=== PATIENT | male | born 1960 | race Caucasian/White ===

== ENCOUNTER 2020-08-18 03:55 | Inpatient (IN) | payer OTHER, SELFPAY ==
[~2020-08-18] VITALS: Ht 175.3 cm; Wt 85.7 kg
[2020-08-18] VITALS (8 sets, daily range): BP systolic 112–138; BP diastolic 72–88
--- NOTE | 2020-08-18 03:55 | NUR ---
PT CHRISTIANNE JIMENEZ, PREBOOK. TAKEN TO CHAIR
--- NOTE | 2020-08-18 03:55 | NUR ---
CHRISTIANNE GAINES 424, FOR PRE-BOOK FOR MEDICAL CLEARANCE. PT. C/O OF RIGHT FOOT PAIN. DENIES N/V/D; SKIN IS PINK/WARM/DRY; AAOX4 WITH GUARDED STEADY GAIT; HR EVEN AND REGULAR; PT DENIES ANY FEVER, CP, SOB, OR COUGH AT THIS TIME; VSS; PATIENT POSITIONED FOR COMFORT; HOB ELEVATED; BEDRAILS UP X2; BED DOWN. ER MD MADE AWARE OF PT STATUS.
--- NOTE | 2020-08-18 03:58 | NUR ---
Dr. Simmons examining patient.
[2020-08-18] MEDS ORDERED: NACL 0.9% 2,500 ML IV ONE (04:00)
[2020-08-18] MEDS ORDERED: PIPERACILLIN/TAZOBACTAM 3.375 GM in DEXTROSE 5% 50 ML IV ONE (04:00)
[2020-08-18] MEDS ORDERED: VANCOMYCIN 1,000 MG in DEXTROSE 5% 250 ML IV ONE (04:00)
--- NOTE | 2020-08-18 04:05 | NUR ---
PT MOVED TO ER BED 12
--- NOTE | 2020-08-18 04:30 | NUR ---
PT TAKEN TO CT
[2020-08-18 04:43] LABS: BASOPHILS % (AUTO) 0.5 % (0.0-2.0); EOSINOPHILS # (AUTO) 0.1 K/uL (0-0.4); EOSINOPHILS % (AUTO) 0.7 % (0.0-4.0); HEMATOCRIT 40.3 % (36-52); HEMOGLOBIN 13.4 g/dL (12.0-18.0); LYMPHOCYTES # (AUTO) 1.1 K/uL (2.0-11.5); LYMPHOCYTES % (AUTO) 11.5 % (20.5-51.1); MEAN CORPUSCULAR HEMOGLOBIN 29 pg (27-31); MEAN CORPUSCULAR HGB CONC 33 g/dL (33-37); MONOCYTES # (AUTO) 0.5 K/uL (0.8-1.0); MONOCYTES % (AUTO) 5.2 % (1.7-9.3); NEUTROPHILS % (AUTO) 82.1 % (42.2-75.2); PLATELET COUNT (AUTO) 348 K/uL (140-450); RED BLOOD CELL COUNT(AUTO) 4.63 MIL/uL (4.20-6.10); RED CELL DISTRIBUTION WIDTH 14.7 % (11.6-13.7); WHITE BLOOD COUNT (AUTO) 9.7 K/uL (4.8-10.8)
[2020-08-18] MEDS ORDERED: PIPERACILLIN/TAZOBACTAM 3.375 GM VIAL IV ONE (04:53)
[2020-08-18] MEDS ORDERED: VANCOMYCIN 1,000 MG VIAL ONE (04:54)
[2020-08-18 04:57] LABS: ALBUMIN 3.2 g/dL (3.4-5.0); ANION GAP 10.9 (8-16); CARBON DIOXIDE 30.1 mmol/L (21-32); CREATININE 1.7 mg/dL (0.6-1.3); TOTAL BILIRUBIN 0.2 mg/dL (0.0-1.0)
[2020-08-18] MEDS ORDERED: MORPHINE SULFATE 4 MG/ML SYR IVP ONE ×2 (05:00→05:45)
--- NOTE | 2020-08-18 05:45 | NUR ---
DELAY IN COLLECTION OF URINE, PT. NOT ABLE TO AT THIS TIME.
--- NOTE | 2020-08-18 06:00 | NUR ---
STEPHANIE SWAB COMPLETED AND TAKEN TO LAB
[2020-08-18] MEDS ORDERED: VANCOMYCIN PER PHARMACY MC PRN (06:05)
[2020-08-18] MEDS ORDERED: LORazepam 2 MG/ML VIAL IVP PRN (06:05)
[2020-08-18] MEDS ORDERED: ONDANSETRON 4 MG/2 ML VIAL IVP PRN (06:05)
[2020-08-18] MEDS ORDERED: ACETAMINOPHEN 325 MG TAB PO PRN (06:05)
[2020-08-18] MEDS ORDERED: LEVO0.124 PO (06:27)
[2020-08-18] MEDS ORDERED: TAMS0.4C96 PO (06:27)
--- NOTE | 2020-08-18 07:22 | NUR ---
REPORT RECEIVED FROM CAROLINA RN, TRANSFER OF CARE AT THIS TIME
[2020-08-18 07:25] LABS: CREATINE KINASE MB 2.2 ng/mL (0-3.6)
--- NOTE | 2020-08-18 07:47 | NUR ---
Patient will be admitted to care of Dr Zuluaga. Admited to [facility]. Will go to room 112B. Belongings list completed. Report to Sarah HOROWITZ.
--- NOTE | 2020-08-18 08:00 | NUR ---
PT STATES HE IS HAVING HARD TIME BREATHING. ERMD MADE AWARE
[2020-08-18] MEDS ORDERED: methylPREDNISolone SS 125 MG/2 ML VIAL IVP ONE (08:05)
[2020-08-18] MEDS ORDERED: diphenhydrAMINE 50 MG/ML VIAL IVP ONE (08:05)
[2020-08-18] MEDS: NACL 0.9% 1,000 ML IV SCH ×2 (08:20→18:37)
[2020-08-18] MEDS ORDERED: TAMSULOSIN 0.4 MG CAP PO ONE (08:30)
--- NOTE | 2020-08-18 08:40 | NUR ---
PT STATES HE IS BREATHING MUCH EASIER AFTER MEDICATIONS GIVEN
[2020-08-18] MEDS ORDERED: LEVOTHYROXINE 0.075 MG TAB PO SCH (09:00)
[2020-08-18] MEDS: LEVOTHYROXINE 0.112 MG TAB PO SCH (09:00)
[2020-08-18 09:29] LABS: BARBITURATE, URINE NEGATIVE ng/ml (NEG <=200); BENZODIAZEPINE, URINE NEGATIVE ng/mL (NEG <=200); CANNABINOID, URINE NEGATIVE ng/mL (NEG <=50); COCAINE, URINE NEGATIVE ng/mL (NEG <=300); OPIATE, URINE POSITIVE ng/mL (NEG <=2000); PHENCYCLIDINE SCREEN,URINE NEGATIVE ng/mL (NEG <=25)
[2020-08-18 09:32] LABS: PROTHROMBIN TIME 9.5 secs (10.8-13.4)
--- NOTE | 2020-08-18 09:36 | NUR ---
Patient will be admitted to care of Dr Zuluaga. Admited to ICU. Will go to room 8. Belongings list completed. Report to Pastor HOROWITZ.
--- NOTE | 2020-08-18 10:00 | NUR ---
PATIENT ARRIVED UNIT VIA GURNEY ACCOMPANIED BY ED NURSE BEST AND EMT KERRY. ASSISTED PATIENT TO TRANSFER TO ICU BED AND POSITIONED PATIENT COMFORTABLY. CHANGED PATIENT INTO YELLOW GOWN, APPLIED ALLERGIC RED WRIST BAND AND YELLOW WRIST BAND FOR FALL RISK. PATIENT IS AWAKE, ALERT, ORIENTED TO NAME, PLACE, DATE, AND TIME. ABLE TO MAKE NEED KNOWN AND FOLLOW COMMANDS. RESPIRATION EVEN, UNLABORED ON ROOM AIR, SETTING SPO2 100%. LUNGS SOUND CLEAR UPON AUSCULTATION. NO SIGNS OF ACUTE DISTRESS NOTED. ATTACHED TO LOAN ASSISTANT, PULSE MONITOR. ADMISSION VITAL SIGNS TAKEN. IV ON R AC 18G, CLEAN AND INTACT, RUNNING NS AT 80 ML/HR. SKIN WARM TO TOUCH, CLEAN, R FOOT/TOE CELLULITIS WOUND NOTED, PATIENT STATED "IT'S HURT BADLY WHEN YOU TOUCH IT OR WHEN I AM MOVING." PATIENT IS ABLE TO USE THE URINAL AT BEDSIDE. ORIENTED PATIENT TO ROOM, DEMONSTRATED ON HOW TO USE THE BED REMOTE TO CHANGE BED POSITION, CALL LIGHT, TV, PATIENT VERBALIZED UNDERSTANDING. SAFETY MEASURES IN PLACE. BED IN LOW POSITION, CALL LIGHT WITHIN REACH, AND BED ALARM ACTIVATED. INSTRUCTED PATIENT TO USE THE CALL LIGHT FOR ANY ASSISTANCE AND PATIENT SAID OK.
--- NOTE | 2020-08-18 10:05 | NUR ---
PT TAKEN TO ICU ROOM 8 AT THIS TIME
--- NOTE | 2020-08-18 10:10 | NUR ---
[facility] NARES SPECIMEN AND WOUND SPECIMEN COLLECTED. PATIENT REFUSED TO PROVIDE EMERGENCY CONTACT INFORMATION NOR PCP INFORMATION. STATED THAT HE CAME TO VISIT HIS SISTER IN THIS AREA. HE ALSO STATED THAT HE IS A VA, THE LAST TIME HE GOT TREATED THERE WAS AROUND MARCH. DENIED OF ANY MEDICAL HISTORY, NOT USING ANY SUBSTANCE. STATED THAT HE USED TO STAY IN A MOTEL.
--- NOTE | 2020-08-18 10:46 | NUR ---
DR MANDUJANO IS ASSESSING PATIENT AT BEDSIDE.
[2020-08-18] MEDS ORDERED: EPINEPHrine 1 MG/ML AMP SUBQ PRN (10:55)
--- NOTE | 2020-08-18 11:05 | NUR ---
PATIENT IS RESTING ON BED COMFORTABLY. DENIED OF ANY DISTRESS. INFORMED PATIENT LUNCH WILL BE SERVE AROUND [phone]. PATIENT SAID OK. NO SIGNS OF ACUTE DISTRESS NOTED. SAFETY MEASURES IN PLACE.
[2020-08-18] MEDS: LEVOFLOXACIN 750 MG/D5W PREMIX 150 ML IV SCH (11:45)
--- NOTE | 2020-08-18 11:50 | NUR ---
LEVOPHED IVPB STARTED PER ORDER, PT EDUCATED ON S/S OF ALLERGIC REACTION, AND INSTRUCTED TO NOTIFY IMMEDIATELY IF ANY REACTION TO NEW MED.
--- NOTE | 2020-08-18 12:40 | NUR ---
PATIENT IS EATING LUNCH ON BED AND WATCHING TV. NO SIGNS OF ACUTE DISTRESS NOTE. SAFETY MEASURES IN PLACE.
--- NOTE | 2020-08-18 12:52 | NUR ---
DR HICKS'S ZABRINA CHESTER IS ASSESSING AND TALKING TO PATIENT AT BEDSIDE.
[2020-08-18] MEDS ORDERED: PIPERACILLIN/TAZOBACTAM 3.375 GM in DEXTROSE 5% 50 ML IV SCH (13:00)
--- NOTE | 2020-08-18 13:45 | NUR ---
DR HICKS IS ASSESSING AND TALKING TO PATIENT AT BEDSIDE. EXPLAINED SUKH RISKS AND BENEFITS TO PATIENT ON DEBRIDEMENT OF HIS R FOOT.
--- NOTE | 2020-08-18 13:50 | NUR ---
CONSENT OBTAINED FROM PATIENT FOR DEBRIDEMENT PROCEDURE THAT SCHEDULE TOMORROW. PATIENT WAS AWARE AND AGREED TO PROCEDURE.
--- NOTE | 2020-08-18 14:45 | NUR ---
PATIENT IS SLEEPING COMFORTABLY ON BED AT THIS TIME. AROUSABLE TO VOICE. RESPIRATION EVEN, UNLABOTED, ON ROOM AIR. NO SIGNS OF ACUTE DISTRESS NOTED. SAFETY MEASURES IN PLACE.
--- NOTE | 2020-08-18 15:37 | NUR ---
US TECHNICAL SERVICES ANALYST IS BY BEDSIDE. NO SIGNS OF DISTRESS NOTED. SAFETY MEASURES IN PLACE.
--- NOTE | 2020-08-18 17:15 | NUR ---
PATIENT IS AWAKE AND WATCHING TV ON BED. NO SIGNS OF ACUTE DISTRESS NOTED. SAFETY MEASURES IN PLACE.
--- NOTE | 2020-08-18 18:10 | NUR ---
PATIENT TRANSFERRED TO TELE UNIT 119B WITHOUT ANY INCIDENT. ALL BELONGINGS TRANSFERRED WITH PATIENT. ORIENTED PATIENT TO HIS ROOM, DEMONSTRATED ON HOW TO USE THE CALL LIGHT, TV, LIGHT, BED REMOTE. SAFETY MEASURES IN PLACE.
--- NOTE | 2020-08-18 18:37 | NUR ---
PATIENT IS EATING DINNER ON BED. DENIED OF ANY DISTRESS. SAFETY MEASURES IN PLACE. NPO SIGN POSTED BY DOOR. EDUCATED PATIENT ON HIS DIET NPO AFTER MIDNIGHT, PATIENT VERBALIZED UNDERSTANDING.
--- NOTE | 2020-08-18 19:16 | NUR ---
ENDORSED PATIENT TO SIGN ERECTOR AND REPAIRER NURSE MINAL FOR CONTINUITY OF CARE. MINAL WAS AWARE THAT NPO AFTER MIDNIGHT, SIGN POSTED BY DOOR. PROCEDURE TENTATIVE SCHEDULE AT [address] HICKS. PATIENT IS IN STABLE CONDITION.
--- NOTE | 2020-08-18 19:29 | NUR ---
RECEIVED REPORT FROM AM SHIFT NURSE. PATIENT ON BED AWAKE, ALERT, NO ACUTE DISTRESS. IVF OF NS INFUSING ON THE RAC. SWELLING ON THE RIGHT FOOT NOTED. DENIES PAIN. WILL CONTINUE TO MONITOR.
[2020-08-18] MEDS: HYDROcodone/APAP 5/325 MG 1 TAB TAB PO PRN (21:06)
[2020-08-18] MEDS: cefTRIAXone 2,000 MG in DEXTROSE 5% 100 ML IV SCH (21:09)
--- NOTE | 2020-08-18 21:16 | NUR ---
SCHEDULED MEDS ADMINISTERED ORDERED BY .
[2020-08-18] MEDS: CLOTRIMAZOLE 1% 30 GM CRM TUBE TP SCH (21:22)
[2020-08-19] VITALS (7 sets, daily range): BP systolic 103–163; BP diastolic 56–90
--- NOTE | 2020-08-19 03:13 | NUR ---
CHECKED PATIENT SLEEPING
--- NOTE | 2020-08-19 03:40 | NUR ---
PATIENT IS AWAKE , ASKED FOR HOT WATER.
[2020-08-19 05:28] LABS: BASOPHILS % (AUTO) 0.3 % (0.0-2.0); HEMATOCRIT 36.3 % (36-52); HEMOGLOBIN 11.9 g/dL (12.0-18.0); LYMPHOCYTES # (AUTO) 1.6 K/uL (2.0-11.5); LYMPHOCYTES % (AUTO) 12.9 % (20.5-51.1); MEAN CORPUSCULAR HEMOGLOBIN 29 pg (27-31); MEAN CORPUSCULAR HGB CONC 33 g/dL (33-37); MEAN CORPUSCULAR VOLUME 86.7 fL (80-94); MONOCYTES # (AUTO) 0.6 K/uL (0.8-1.0); MONOCYTES % (AUTO) 5.2 % (1.7-9.3); NEUTROPHILS # (AUTO) 9.8 K/uL (1.8-7.7); NEUTROPHILS % (AUTO) 81.6 % (42.2-75.2); PLATELET COUNT (AUTO) 328 K/uL (140-450); RED BLOOD CELL COUNT(AUTO) 4.18 MIL/uL (4.20-6.10); RED CELL DISTRIBUTION WIDTH 15.2 % (11.6-13.7)
[2020-08-19 05:41] LABS: ALBUMIN 2.7 g/dL (3.4-5.0); ANION GAP 11.8 (8-16); CARBON DIOXIDE 25.8 mmol/L (21-32); CREATININE 1.5 mg/dL (0.6-1.3); MAGNESIUM 1.9 mg/dL (1.8-2.4); POTASSIUM 4.6 mmol/L (3.5-5.1); TOTAL BILIRUBIN 0.2 mg/dL (0.0-1.0)
[2020-08-19 05:51] LABS: CREATINE KINASE MB 1.8 ng/mL (0-3.6)
[2020-08-19] MEDS: LEVOTHYROXINE 0.112 MG TAB PO SCH (05:58)
[2020-08-19] MEDS: NACL 0.9% 1,000 ML IV SCH ×2 (07:05→19:35)
--- NOTE | 2020-08-19 07:28 | NUR ---
ENDORSED TO AM SHIFT NURSE FOR CONTINUITY OF CARE. PATIENT IS STABLE
--- NOTE | 2020-08-19 07:30 | NUR ---
RECEIVED REPORT FROM SUPPORT SERVICES REP NURSE. PATIENT LYING DOWN IN BED SLEEPING, AROUSABLE BY VOICE. NO DISTRESS NOTED. ON ROOM AIR. AAOX3, CALM, COOPERATIVE. IV SITE INTACT, PATENT, AND INFUSING IVF PER MD ORDERS. REVIEWED PLAN OF CARE WITH PATIENT. PATIENT VERBALIZED UNDERSTANDING. SAFETY MEASURES IN PLACE, CALL LIGHT WITHIN REACH. OR NURSES AT BEDSIDE TO TAKE PATIENT FOR I&D OF RIGHT FOOT CELLULITIS. WILL CONTINUE TO MONITOR WHEN PATIENT RETURNS ON UNIT.
[2020-08-19] MEDS ORDERED: fentaNYL citrate 0.05 MG/ML VIAL ONE (07:39)
[2020-08-19] MEDS ORDERED: BUPIVACAINE-MPF 0.25% 30 ML VIAL INJ ONE (07:43)
[2020-08-19] MEDS ORDERED: DESFLURANE 240 ML BTL INH ONE (07:51)
[2020-08-19] MEDS ORDERED: DEXAMETHASONE 4 MG/ML VIAL ONE (08:01)
[2020-08-19] MEDS ORDERED: ONDANSETRON 4 MG/2 ML VIAL ONE (08:01)
[2020-08-19] MEDS ORDERED: PROPOFOL 200 MG/20 ML VIAL IV ONE (08:02)
[2020-08-19] MEDS ORDERED: HYDROGEN PEROXIDE 3% 240 ML BTL TP ONE (08:19)
[2020-08-19] MEDS ORDERED: NEOMYCIN/POLYMYXIN/BACITRACIN OIN 15 GM TUBE TP SCH (08:35)
--- NOTE | 2020-08-19 08:55 | NUR ---
PENDING WOUND CONSULT, PT. SCHEDULE FOR DEBRIDEMENT.
--- NOTE | 2020-08-19 08:56 | NUR ---
PATIENT HAS BEEN SCREENED AND CATEGORIZED HIGH NUTRITION RISK. PATIENT WILL BE SEEN WITHIN 1-2 DAYS OF ADMISSION. 08/19/[address]
[2020-08-19] MEDS ORDERED: ASPIRIN 81 MG TAB.CHEW PO SCH (09:00)
[2020-08-19] MEDS ORDERED: ONDANSETRON 4 MG/2 ML VIAL IVP PRN (09:10)
[2020-08-19] MEDS ORDERED: HYDROCORTISONE NA SUCC 100 MG/2 ML VIAL ONE (09:26)
[2020-08-19] MEDS: FAMOTIDINE 20 MG/2 ML VIAL IV SCH ×2 (09:41→11:20)
[2020-08-19] MEDS ORDERED: ALBUTEROL 0.083% 2.5 MG/3 ML NEBU INH SCH (10:30)
--- NOTE | 2020-08-19 10:38 | NUR ---
CALLED ICU AND GAVE REPORT TO LOR ROBISON. ANSWERED ALL RN'S QUESTIONS. PATIENT STILL IN OR AND WILL GO DIRECTLY TO ICU AFTER I&D PROCEDURE.
[2020-08-19] MEDS: CLOTRIMAZOLE 1% 30 GM CRM TUBE TP SCH ×3 (11:31→21:00)
[2020-08-19] MEDS: cefTRIAXone 2,000 MG in DEXTROSE 5% 100 ML IV SCH ×2 (11:32→21:00)
--- NOTE | 2020-08-19 11:38 | NUR ---
ADMINISTERED SCHEDULED AM MEDICATION. HELD CLOTRIMAZOLE DUE TO FOOT WRAPPED. WILL CONTINUE TO MONITOR.
--- NOTE | 2020-08-19 12:22 | NUR ---
PAGED DR MANDUJANO OFFICE FOR CALCIUM LEVEL OF 8.1. WILL FOLLOW UP.
[2020-08-19] MEDS: LEVOFLOXACIN 750 MG/D5W PREMIX 150 ML IV SCH (12:42)
--- NOTE | 2020-08-19 12:42 | NUR ---
ROCEPHIN FINISHED, NO SIGNS OF REACTION. ADMINISTERED LEVAQUIN. WILL CONTINUE TO MONITOR.
[2020-08-19 12:43] LABS: BASOPHILS % (AUTO) 0.1 % (0.0-2.0); EOSINOPHILS % (AUTO) 0.1 % (0.0-4.0); HEMATOCRIT 42.1 % (36-52); HEMOGLOBIN 13.7 g/dL (12.0-18.0); LYMPHOCYTES # (AUTO) 0.9 K/uL (2.0-11.5); LYMPHOCYTES % (AUTO) 6.6 % (20.5-51.1); MEAN CORPUSCULAR HEMOGLOBIN 28 pg (27-31); MEAN CORPUSCULAR HGB CONC 33 g/dL (33-37); MEAN CORPUSCULAR VOLUME 87.1 fL (80-94); MONOCYTES # (AUTO) 0.3 K/uL (0.8-1.0); MONOCYTES % (AUTO) 2.6 % (1.7-9.3); NEUTROPHILS # (AUTO) 11.9 K/uL (1.8-7.7); NEUTROPHILS % (AUTO) 90.6 % (42.2-75.2); PLATELET COUNT (AUTO) 332 K/uL (140-450); RED BLOOD CELL COUNT(AUTO) 4.83 MIL/uL (4.20-6.10); WHITE BLOOD COUNT (AUTO) 13.1 K/uL (4.8-10.8)
--- NOTE | 2020-08-19 12:58 | NUR ---
DR BARRIOS CALLED BACK FROM DR MANDUJANO OFFICE. PER DR BARRIOS, OBTAIN LABS FOR VITAMIN D AND IONIZED CALCIUM FOR CALCIUM LEVEL OF 8.1. HE WILL BE IN LATER TO ASSESS RESULTS AND PLAN OF CARE.
--- NOTE | 2020-08-19 13:15 | NUR ---
DR BARRIOS AT BEDSIDE ROUNDING ON PATIENT. PER MD, AWAIT LAB RESULTS TOMORROW TO REASSESS CALCIUM LEVELS. NO NEW ORDERS AT THIS TIME.
--- NOTE | 2020-08-19 13:44 | NUR ---
CHECKED ON PATIENT. NO SIGNS OF DISTRESS OR PAIN. WILL CONTINUE TO MONITOR.
--- NOTE | 2020-08-19 15:19 | NUR ---
08/19/20 RD INITIAL ASSESSMENT COMPLETED PLEASE REFER TO NUTRITION ASSESSMENT UNDER CARE ACTIVITY FOR ESTIMATED NUTRITIONAL NEEDS. 1. IF/WHEN PT IS MEDICALLY CLEAR CONSIDER ADV TO REGULAR DIET 2. RECOMMEND CLAYTON AND ENSURE BID FOR WOUND HEALING 3. RD TO FOLLOW-UP 2-3 DAYS, HIGH-RISK SAAD ESCOBAR, RD
[2020-08-19] MEDS: HYDROcodone/APAP 5/325 MG 1 TAB TAB PO PRN ×2 (15:40→20:37)
--- NOTE | 2020-08-19 17:34 | NUR ---
CHECKED ON PATIENT. NO SIGNS OF DISTRESS OR PAIN. WILL CONTINUE TO MONITOR.
[2020-08-19] MEDS: MORPHINE SULFATE 2 MG/ML SYR IVP PRN (17:42)
--- NOTE | 2020-08-19 19:18 | NUR ---
ENDORSED TO AVELINA RN FOR CONTINUITY OF CARE.
--- NOTE | 2020-08-19 19:30 | NUR ---
RECEIVED PT LYING IN BED, AWAKE, A/O X4. DENIES PAIN AT THIS TIME. ON RA, NO SOB NOTED. +S1, S2 UPON AUSCULTATION. SR ON MONITOR. ABD SOFT, NON-DISTENDED, NON-TENDER. CONTINUES ON REG DIET, ABLE TO EAT INDEPENDENTLY. PERIPHERAL 18G TO RT AC WITH NS INFUSING AT 80 CC/MIN. USES URINAL INDEPENDENTLY. CAP REFILL <3 SEC. SCANT NON-PITTING EDEMA NOTED TO BI UPPER EXTREMITIES. WOUND TO RT FOOT WRAPPED WITH SUHAS BANDAGE AT THIS TIME D/T S/P SURGICAL DEBRIDEMENT WITH I&D TODAY. SAFETY PRECAUTIONS IN PLACE WITH BED LOW AND LOCKED AND CALL LIGHT IN EASY REACH. WILL CONT TO MONITOR FOR CHANGES.
--- NOTE | 2020-08-19 20:37 | NUR ---
NORCO ADMINISTERED AT THIS TIME FOR C/O PAIN @ 5/10 ON ADULT SCALE.
[2020-08-19] MEDS ORDERED: cefTRIAXone 2,000 MG VIAL ONE (20:56)
[2020-08-20] VITALS (7 sets, daily range): BP systolic 93–141; BP diastolic 62–94
--- NOTE | 2020-08-20 | NUR ---
PT SLEEPING IN BED WITH VISIBLE RISE AND FALL OF CX NOTED. NO DISTRESS OBSERVED. WILL CONT TO MONITOR.
[2020-08-20] MEDS: MORPHINE SULFATE 2 MG/ML SYR IVP PRN ×2 (04:50→16:08)
--- NOTE | 2020-08-20 04:50 | NUR ---
MORPHINE ADMINISTERED AT THIS TIME FOR C/O PAIN @ 6/20 ON ADULT SCALE. SEE PAIN ASSESSMENT FOR DETAILS.
--- NOTE | 2020-08-20 06:00 | NUR ---
TRANSFERRED PT TO [facility] ROOM 116. REPORT GIVEN TO LOR PRESTON. IV LINES PATENT, VSS. SAFETY PRECAUTIONS IN PLACE. ALL MEDICATIONS AND BELONGINGS SENT WITH PT.
--- NOTE | 2020-08-20 06:05 | NUR ---
RECEIVED PATIENT FROM ICU VIA BED. PATIENT A/A/OX4,C/O PAIN ON HIS RT FOOT AND REQUESTING FOR PAIN MEDICATIONS. PATIENT VSS, AFEBRILE, SATING 96% ON RA. SR ON MANAGER STRATEGIC MARKETING, HR-71. IVF INFUSING ORDERED. ORIENTED THE PT TO THE ROOM SETTING AND USE OF CALL LIGHT SYSTEM. FALL PRECAUTION IMPLEMENTED. INSTRUCTED TO CALL FOR ASSISTANCE AT ALL TIMES. PT VERBALIZED UNDERSTANDING WITH THE POC. WILL CONTINUE MONITORING AND POC.
[2020-08-20] MEDS: HYDROcodone/APAP 5/325 MG 1 TAB TAB PO PRN ×4 (06:18→21:39)
[2020-08-20] MEDS: LEVOTHYROXINE 0.112 MG TAB PO SCH (06:18)
--- NOTE | 2020-08-20 06:24 | NUR ---
PATIENT REQUESTING TO GET AN ORDER TO RESUME HIS FLOMAX. PAGED DR BAKER AND MADE AWARE OF THE PATIENT REQUEST. AWAITING FOR MD TO CALL BACK.
--- NOTE | 2020-08-20 06:51 | NUR ---
PATIENT STABLE. NOT IN ANY DISTRESS AND NO COMPLAIN AT THIS TIME. ALL NEEDS ATTENDED. CALL LIGHT WITHIN REACH. WILL ENDORSE THE PATIENT TO THE ONCOMING RN FOR CONTINUITY OF CARE.
--- NOTE | 2020-08-20 07:20 | NUR ---
RECEIVED REPORT FROM CLAM GRADER RN FOR CONTINUITY OF CARE. AOX4. SR ON MONITOR. ON RA. REGULAR DIET. ABLE TO SIT IN CHAIR. USES URINAL AND AMBULATES TO BATHROOM WITH ASSIST. IV CLEAN, DRY, AND INTACT ON RAC 18G. SKIN INTACT. BED IN LOCKED POSITION, BED IN PLACE, HEAD OF BED AT 30 DEGREES. CALL LIGHT WITHIN REACH. WILL CONTINUE TO MONITOR.
--- NOTE | 2020-08-20 07:34 | NUR ---
ENDORSED THE PATIENT TO DAY RN FOR CONTINUITY OF CARE. PATIENT STABLE. SIGNING OFF.
[2020-08-20 08:27] LABS: BASOPHILS % (AUTO) 0.4 % (0.0-2.0); EOSINOPHILS # (AUTO) 0.1 K/uL (0-0.4); EOSINOPHILS % (AUTO) 0.7 % (0.0-4.0); HEMATOCRIT 34.6 % (36-52); HEMOGLOBIN 11.5 g/dL (12.0-18.0); LYMPHOCYTES # (AUTO) 2.8 K/uL (2.0-11.5); LYMPHOCYTES % (AUTO) 25.9 % (20.5-51.1); MEAN CORPUSCULAR HEMOGLOBIN 29 pg (27-31); MEAN CORPUSCULAR HGB CONC 33 g/dL (33-37); MONOCYTES # (AUTO) 0.5 K/uL (0.8-1.0); MONOCYTES % (AUTO) 4.3 % (1.7-9.3); NEUTROPHILS # (AUTO) 7.3 K/uL (1.8-7.7); NEUTROPHILS % (AUTO) 68.7 % (42.2-75.2); PLATELET COUNT (AUTO) 301 K/uL (140-450); RED BLOOD CELL COUNT(AUTO) 4.02 MIL/uL (4.20-6.10); WHITE BLOOD COUNT (AUTO) 10.6 K/uL (4.8-10.8)
[2020-08-20 08:31] LABS: CREATININE 1.5 mg/dL (0.6-1.3)
[2020-08-20] MEDS: CLOTRIMAZOLE 1% 30 GM CRM TUBE TP SCH ×2 (09:24→21:37)
[2020-08-20] MEDS: NACL 0.9% 1,000 ML IV SCH ×2 (09:24→21:28)
--- NOTE | 2020-08-20 09:30 | NUR ---
ADMINISTERED SCHEDULED AM MEDICATIONS. ORAL CARE, HYGIENE CARE, AND CHG BATH PROVIDED. WILL CONTINUE TO MONITOR.
[2020-08-20] MEDS: cefTRIAXone 2,000 MG in DEXTROSE 5% 100 ML IV SCH ×2 (09:40→21:23)
[2020-08-20] MEDS: TAMSULOSIN 0.4 MG CAP PO SCH (10:49)
[2020-08-20] MEDS: LEVOFLOXACIN 750 MG/D5W PREMIX 150 ML IV SCH (11:21)
--- NOTE | 2020-08-20 11:45 | NUR ---
PATIENT PULLED OUT IV. NEW IV PLACED LEFT HAND 22 G. RESTARTED IVF AND ANTIBIOTICS. WILL CONTINUE TO MONITOR.
--- NOTE | 2020-08-20 13:46 | NUR ---
CHECKED ON PATIENT. NO SIGN OF PAIN OR DISTRESS. WILL CONTINUE TO MONITOR.
--- NOTE | 2020-08-20 14:10 | NUR ---
DR. SHAIKH STRANGE. UPDATED ON PATIENT STATUS AND CONDITION. AWARE PATIENT IS TRANSFERRING BY WITH MINIMAL ASSIST AND IS NOT HAVING REACTION TO NEW IV ANTIBIOTICS. SAID OKAY FOR DC PENDING ON DR. HICKS AND DR. MONTIEL ORDERS. WILL CONTINUE TO MONITOR.
--- NOTE | 2020-08-20 19:23 | NUR ---
RECEIVED REPORT FROM AM NURSE. PATIENT AWAKE IN BED, NO SOB NOTED. DENIES PAIN. CALL LIGHT WITHIN REACH. WILL CONTINUE TO MONITOR.
--- NOTE | 2020-08-20 19:23 | NUR ---
ENDORSED CARE TO MINAL HOROWITZ FOR CONTINUITY OF CARE.
--- NOTE | 2020-08-20 19:35 | NUR ---
LATE ENTRY- ZOSYN IVPB DISCONTINUED AT 3034
--- NOTE | 2020-08-20 21:02 | NUR ---
ADMINISTERED SCHEDULED MEDS ORDERED. NEEDS ATTENDED.
[2020-08-21] VITALS: BP 120/66
[2020-08-21 04:00] VITALS: BP 127/86
[2020-08-21] MEDS: LEVOTHYROXINE 0.112 MG TAB PO SCH (05:34)
[2020-08-21] MEDS: HYDROcodone/APAP 5/325 MG 1 TAB TAB PO PRN ×2 (07:01→11:30)
--- NOTE | 2020-08-21 07:10 | NUR ---
ENDORSED TO AM NURSE FOR CONTINUITY OF CARE. PATIENT IS STABLE.
--- NOTE | 2020-08-21 07:25 | NUR ---
RECEIVED REPORT FROM STORE WORKER NURSE. PATIENT LYING DOWN IN BED APPEARS TO BE RESTING, AROUSABLE BY VOICE. NO DISTRESS NOTED. ON ROOM AIR. AAOX4, CALM, COOPERATIVE. SAFETY MEASURES IN PLACE, CALL LIGHT WITHIN REACH.
[2020-08-21 08:00] VITALS: BP 125/80
--- NOTE | 2020-08-21 08:01 | NUR ---
PT'S PAIN WAS REEVALUATED. PT DENIES PAIN AT THIS TIME. PT RESTING IN BED SITTING EATING BREAKFAST DENIES N/V . ALL SAFETY MEASURES ARE IN PLACE.
[2020-08-21] MEDS: TAMSULOSIN 0.4 MG CAP PO SCH (08:28)
[2020-08-21] MEDS: cefTRIAXone 2,000 MG in DEXTROSE 5% 100 ML IV SCH (08:29)
[2020-08-21] MEDS: CLOTRIMAZOLE 1% 30 GM CRM TUBE TP SCH (08:30)
--- NOTE | 2020-08-21 08:48 | NUR ---
MEDICATIONS GIVEN PER MD ORDER. PT EDUCATED . PT VERBALIZED UNDERSTANDING. TAMSULOSIN DROPPED, WASTED, NEW MED GIVEN. PT TOLERATED WELL. NO S/S OF DISTRESS AT THIS TIME . CALL LIGHT WITHIN REACH.
--- NOTE | 2020-08-21 10:00 | NUR ---
PTS WOUND CARE DONE PER MD ORDER. PT ASSISTED AND EDUCTAED THROUGH OUT PROCESS. PT TOLERATED WELL.
--- NOTE | 2020-08-21 11:15 | NUR ---
MEDICATIONS GIVEN PER MD ORDER. PT EDUCATED . PT VERBALIZED UNDERSTANDING. PT TOLERATED WELL. NO S/S OF DISTRESS AT THIS TIME . CALL LIGHT WITHIN REACH.
[2020-08-21] MEDS: LEVOFLOXACIN 750 MG/D5W PREMIX 150 ML IV SCH (11:29)
[2020-08-21] MEDS: NACL 0.9% 1,000 ML IV SCH (11:29)
[2020-08-21 12:00] VITALS: BP 138/77
--- NOTE | 2020-08-21 13:11 | NUR ---
PT ROUNDED ON , PT ASSISTED TO COMMODE , STAND BY ASSISTANCE. PT TOLERATED WELL ONE BM TODAY
--- NOTE | 2020-08-21 14:17 | NUR ---
08/21/20 RD FOLLOW UP COMPLETED PLEASE REFER TO NUTRITION ASSESSMENT UNDER CARE ACTIVITY FOR ESTIMATED NUTRITIONAL NEEDS. 1. CONT. REGULAR DIET 2. RECOMMEND CLAYTON BID AND ENSURE ONCE DAILY FOR WOUND HEALING 3. RD TO FOLLOW-UP 3-5 DAYS, MODERATE-RISK SAAD ESCOBAR, RD
[2020-08-21 16:00] VITALS: BP 142/82
--- NOTE | 2020-08-21 16:05 | NUR ---
DC PLANNING: PT HAS A DC ORDER TO GO HOME WITH HOME HEALTH FOR WOUND CARE. FAXED TO [facility] , RECEIVED A CALL FROM JAYDE ACOSTA THE AUTH [phone] . [facility] ACCEPTED PATIENT [phone] WILL SEE PATIENT TOMORROW. NOTIFIED HENRIQUE CHARGE NURSE.
[2020-08-21 17:13] VITALS: BP 144/82
--- NOTE | 2020-08-21 17:33 | NUR ---
PT IS UNABLE TO AMBULATE . PT REQUEST WHEEL CHAIR AND WALKER. CHARGE NURSE AWARE. AWARE
--- NOTE | 2020-08-21 18:06 | NUR ---
MD CONTACTED REGARDING CONTINUITY OF CARE. PT UNABLE TO WALK OR LEAVE WITHOUT ASSISTIVE DEVICES.
--- NOTE | 2020-08-21 18:43 | NUR ---
PT RESTING IN BED EATING DINNER COMFORTABLY. PT TOLERATING WELL. NO S/S OF DISTRESS AT THIS TIME. WILL ENDORSE TO MEMBER OF THE LEGISLATIVE COUNCIL RN FOR CONTINUITY OF CARE.
--- NOTE | 2020-08-21 19:30 | NUR ---
RECEIVED REPORT FROM MILADYS HOROWITZ DAYSHIFT NURSE, PT SITTING UP IN BED AOX4 ON ROOM AIR NO S/S OF PAIN OR DISTRESS NOTED. PT IS ALSO DRESSED AND READY TO LEAVE.
--- NOTE | 2020-08-21 22:00 | NUR ---
DISCHARGE PAPERS REVIEWED AND SIGNED. PT RECEIVED SCRIPTS FOR ABT AND PAIN. PT WAS ABLE TO GET UBER TO COME AND PICK HIM UP. ARM BAND OFF, PT LEFT WITH BELONGINGS AND PAPER WORK IN HAND.
== END 2020-08-21 20:53 | disposition home or self-care (01) | DRG 383 ==
LOC: EDSEX 03:55 → MED 03:55 → MTU 06:02 → MIC 08:40 → MTU 17:45 → MIC 08-19 11:00 → MTU 08-20 06:00
PROVIDERS: ADMIT Hospitalist; ATTEND Hospitalist
PROC: 0JBQ0ZZ Excision of Right Foot Subcutaneous Tissue and Fascia, Open Approach (ICD-10-PCS; principal; 2020-08-19 13:00)
DX: L08.9 Local infection of the skin and subcutaneous tissue, unspecified (principal); R65.11 Systemic inflammatory response syndrome (SIRS) of non-infectious origin with acute organ dysfunction; N17.0 Acute kidney failure with tubular necrosis; E44.1 Mild protein-calorie malnutrition; B35.3 Tinea pedis; E03.9 Hypothyroidism, unspecified; F17.200 Nicotine dependence, unspecified, uncomplicated; F19.10 Other psychoactive substance abuse, uncomplicated; N40.0 Benign prostatic hyperplasia without lower urinary tract symptoms
CPT/HCPCS: 36415; 71045; 73700; 80048; 80053; 80305; 82306; 82330; 82550; 82553; 83605; 83735; 84484; 85025; 85610; 85730; 87040; 87070; 87075; 87081; 87102; 87186; 87205; 93005; 93970; 93971; 96361; 96365; 96366; 96375; 99291; J0696; J1100; J1200; J1644; J1720; J1956; J2270; J2405; J2543; J2704; J2930; J3010; J3370; J3490; J7030; J7060; J7613